=== PATIENT | female | born 1955 | race Caucasian/White ===

== ENCOUNTER → 2021-02-14 | Outpatient (CLI) | payer MEDICARE, BC, OTHER ==
--- NOTE | 2021-02-14 11:43 | REP ---
INDICATION: R07.9 CHEST PAIN R00.2 PALPATATIONS. COMPARISON: None. TECHNIQUE: PA and lateral views FINDINGS: The lungs are clear. The heart is not enlarged. There is no failure. The mediastinum, pleural surfaces and bony structures unremarkable. IMPRESSION: No active process. <Electronically signed by Samuel Montes > 02/14/21 0502
== END ==
LOC: M WUC 11:03
PROVIDERS: ATTEND Physician Assistant
DX: R07.9 Chest pain, unspecified (principal); R00.2 Palpitations

== ENCOUNTER → 2021-11-27 | Outpatient (CLI) | payer MEDICARE, BC, OTHER ==
[2021-11-27 13:30] LABS: BASO # 0.1 10^3/uL (0.0-0.2); BASO % 0.6 % (0.0-1.0); EOS # 0.3 10^3/uL (0.0-0.5); EOS % 3.2 % (0.0-3.0); HEMATOCRIT 41.1 % (36.0-47.0); HEMOGLOBIN 13.3 g/dl (12.0-15.5); LYMPH # 1.6 10^3/uL (1.5-5.0); LYMPH % 20.8 % (24.0-44.0); MEAN CORPUSCULAR HEMOGLOBIN 27.8 pg (27.0-33.0); MEAN CORPUSCULAR HGB CONC 32.4 g/dl (32.0-36.5); MONO # 0.7 10^3/uL (0.0-0.8); MONO % 8.7 % (2.0-8.0); NEUTROPHILS # 5.2 10^3/uL (1.5-8.5); NEUTROPHILS % 66.6 % (36.0-66.0); PLATELET COUNT, AUTOMATED 223 10^3/uL (150-450); RED BLOOD COUNT 4.78 10^6/uL (4.00-5.40); WHITE BLOOD COUNT 7.8 10^3/uL (4.0-10.0)
[2021-11-27 14:03] LABS: ERYTHROCYTE SEDIMENTATION RATE 18 mm/hr (0-30)
== END ==
LOC: M PLALAB 09:57
PROVIDERS: ATTEND Orthopaedic Surgery Adult Reconstructive Orthopaedic Surgery
DX: T84.84XA Pain due to internal orthopedic prosthetic devices, implants and grafts, initial encounter (principal)

== ENCOUNTER → 2021-11-27 | Outpatient (CLI) | payer MEDICARE, BC, OTHER | LOC: M SOG 08:02 | PROVIDERS: ATTEND Orthopaedic Surgery Adult Reconstructive Orthopaedic Surgery | DX: M25.562 Pain in left knee (principal); T84.84XA Pain due to internal orthopedic prosthetic devices, implants and grafts, initial encounter ==

== ENCOUNTER → 2021-12-30 | Outpatient (CLI) | payer MEDICARE, BC, OTHER ==
[~2021-12-30] MED LIST: ATOR1TAB21 PO; AZEL0.055 NARES; CARI1TAB7 PO; D 50CAP2 PO; FERR325T3 PO; FOLI1TAB11 PO; GING1CAP PO; IBUP80TA PO; LEVO100T5 PO; LEVOTAB10 PO; MECL-136 PO; NITR-67 PO; PROAAER10 INH; REDCAP4 PO; VITA100054 PO; VITAE40CA PO; VITATAB64 PO; [UNRECOGNIZED DRUG - CODE] PO
== END ==
LOC: M LABSMTC 10:08
PROVIDERS: ATTEND Anesthesiology
DX: Z01.812 Encounter for preprocedural laboratory examination (principal); Z20.822 Contact with and (suspected) exposure to COVID-19

== ENCOUNTER 2021-12-31 08:23 | Observation (INO) | payer MEDICARE, BC, OTHER ==
[~2021-12-31] VITALS: Ht 165.1 cm; Wt 91.2 kg
[~2021-12-31 08:23] MED LIST changes: +ACETAMINOPHEN 500 MG TAB PO ONE; +NAPROXEN 250 MG TAB PO ONE; +NS 1,000 ML IV ONE; +NS MINI IV ONE; +PREGABALIN 25 MG CAP (LYRICA) PO ONE; +ROPIVA 125MG/EPINEPH 0.25MG/CLONID 40MCG/KETOR 15MG IN NS 50ML SYRINGE PA ONE; +TRANEXAMIC ACID IV ONE; +ceFAZolin SOD 2 GM in IV 1 EA IV ONE; +dexameTHASONE 4 MG/ML 1ML VIAL (J1100 PER 1MG) IV ONE
[2021-12-31] MEDS ORDERED: LR 1,000 ML IV SCH ×3 (09:00→17:35)
[2021-12-31] MEDS ORDERED: LIDOCAINE 2% INJ 100 MG/5 ML SYRINGE As Ordered ONE (10:47)
[2021-12-31] MEDS ORDERED: ACETAMINOPHEN 1000MG 100ML IV BTL (OFIRMEV) (J0131 PER 10MG) As Ordered ONE (10:47)
[2021-12-31] MEDS ORDERED: PHENYLEPHRINE 10MG/ML 1ML VIAL (J2370 PER 1) As Ordered ONE (10:47)
[2021-12-31] MEDS ORDERED: fentaNYL 100 MCG/2 ML INJECTION As Ordered ONE ×2 (10:48→15:24)
[2021-12-31] MEDS ORDERED: propofoL 500 MG/50 ML VIAL As Ordered ONE (10:48)
[2021-12-31] MEDS ORDERED: MIDAZOLAM INJ 2MG/2ML VIAL (J2250 PER 1MG) As Ordered ONE (10:48)
[2021-12-31] MEDS ORDERED: TRANEXAMIC ACID 100 MG/ML 10ML VIAL As Ordered ONE ×2 (11:35→11:36)
[2021-12-31] MEDS ORDERED: propofoL 200 MG/20 ML VIAL As Ordered ONE ×4 (13:04→16:02)
[2021-12-31] MEDS ORDERED: ceFAZolin 1GM VIAL (J0690 PER 500MG) As Ordered ONE (15:40)
[2021-12-31] MEDS ORDERED: ONDANSETRON 4MG 2ML VIAL IV PRN ×2 (15:50→17:30)
[2021-12-31] MEDS ORDERED: fentaNYL 100 MCG/2 ML INJECTION IV PRN (15:50)
[2021-12-31] MEDS ORDERED: oxyCODONE 5MG TAB PO PRN (15:50)
[2021-12-31] MEDS ORDERED: METOCLOPRAMIDE INJ 10MG/2ML VIAL (J2765 PER 1) IV PRN (15:50)
[2021-12-31] MEDS ORDERED: FERROUS SULFATE 325MG TAB PO SCH (17:10)
[2021-12-31] MEDS ORDERED: ALBUTEROL 90 MCG/ACT 8GM HFA INHALER INH PRN (17:10)
[2021-12-31] MEDS: MORPHINE 2 MG/ML 1ML VIAL IV PRN ×2 (17:24→17:36)
[2021-12-31] MEDS ORDERED: ACETAMINOPHEN TAB 650MG DOSE (2X325MG) PO SCH (17:30)
[2021-12-31] MEDS ORDERED: traMADol 50 MG TAB PO PRN (17:30)
[2021-12-31] MEDS ORDERED: SENNA 8.6 MG TAB (SENOKOT) PO PRN (17:30)
[2021-12-31] MEDS ORDERED: NAPROXEN 250 MG TAB PO SCH (17:30)
[2021-12-31] MEDS: oxyCODONE 5MG TAB PO PRN ×2 (17:57→22:16)
[2021-12-31 18:25] VITALS: BP 115/52
[2021-12-31] MEDS: ACETAMINOPHEN TAB 650MG DOSE (2X325MG) PO SCH ×2 (18:56→23:13)
[2021-12-31 19:00] VITALS: BP 123/61
[2021-12-31 19:30] VITALS: BP 122/64
[2021-12-31 19:48] LABS: HEMATOCRIT 34.1 % (36.0-47.0); HEMOGLOBIN 11.3 g/dl (12.0-15.5); MEAN CORPUSCULAR HEMOGLOBIN 28.5 pg (27.0-33.0); MEAN CORPUSCULAR HGB CONC 33.1 g/dl (32.0-36.5); MEAN CORPUSCULAR VOLUME 86.1 fl (80.0-96.0); PLATELET COUNT, AUTOMATED 209 10^3/uL (150-450); RED BLOOD COUNT 3.96 10^6/uL (4.00-5.40); WHITE BLOOD COUNT 13.1 10^3/uL (4.0-10.0)
[2021-12-31 20:30] VITALS: BP 118/64
[2021-12-31] MEDS: AZELASTINE 137MCG NASAL SPY 30 ML (ASTELIN) SCH (21:00)
[2021-12-31] MEDS ORDERED: MECLIZINE 12.5 MG TAB PO PRN (21:00)
[2021-12-31 21:30] VITALS: BP 122/60
[2021-12-31] MEDS: DOCUSATE SODIUM 100MG CAPSULE PO SCH (22:14)
[2021-12-31] MEDS: ASPIRIN 81MG ENTERIC TABLET PO SCH (22:14)
[2021-12-31] MEDS: NAPROXEN 250 MG TAB PO SCH (22:15)
[2021-12-31] MEDS: ceFAZolin SOD 2 GM in IV 1 EA IV SCH (22:16)
[2021-12-31 22:30] VITALS: BP 121/58
[2022-01-01 02:00] VITALS: BP 110/56
[2022-01-01] MEDS: oxyCODONE 5MG TAB PO PRN ×2 (02:23→08:50)
[2022-01-01 06:00] VITALS: BP 104/55
[2022-01-01] MEDS: ACETAMINOPHEN TAB 650MG DOSE (2X325MG) PO SCH ×2 (06:00→13:08)
[2022-01-01] MEDS: ceFAZolin SOD 2 GM in IV 1 EA IV SCH (06:00)
[2022-01-01] MEDS ORDERED: LEVOTHYROXINE 100MCG TABLET (0.1MG) PO SCH (06:00)
[2022-01-01 06:37] LABS: HEMATOCRIT 30.8 % (36.0-47.0); HEMOGLOBIN 10.3 g/dl (12.0-15.5); MEAN CORPUSCULAR HEMOGLOBIN 29.2 pg (27.0-33.0); MEAN CORPUSCULAR HGB CONC 33.4 g/dl (32.0-36.5); MEAN CORPUSCULAR VOLUME 87.3 fl (80.0-96.0); PLATELET COUNT, AUTOMATED 203 10^3/uL (150-450); RED BLOOD COUNT 3.53 10^6/uL (4.00-5.40); WHITE BLOOD COUNT 14.8 10^3/uL (4.0-10.0)
[2022-01-01 07:07] LABS: ALBUMIN 3.5 GM/DL (3.2-5.2); ALT/SGPT 17 U/L (12-78); BILIRUBIN,TOTAL 0.3 MG/DL (0.2-1.0); BLOOD UREA NITROGEN 13 MG/DL (7-18); CALCIUM LEVEL 8.2 MG/DL (8.8-10.2); CARBON DIOXIDE LEVEL 27 MEQ/L (21-32); CHLORIDE LEVEL 104 MEQ/L (98-107); CREATININE FOR GFR 0.88 MG/DL (0.55-1.30); GLOMERULAR FILTRATION RATE > 60.0 (>45); GLUCOSE, FASTING 167 MG/DL (70-100); POTASSIUM SERUM 4.2 MEQ/L (3.5-5.1); SODIUM LEVEL 137 MEQ/L (136-145); TOTAL PROTEIN 6.1 GM/DL (6.4-8.2)
[2022-01-01] MEDS: ASPIRIN 81MG ENTERIC TABLET PO SCH (08:49)
[2022-01-01] MEDS: NAPROXEN 250 MG TAB PO SCH (08:50)
[2022-01-01] MEDS: DOCUSATE SODIUM 100MG CAPSULE PO SCH (08:50)
[2022-01-01] MEDS ORDERED: CYANOCOBALAMIN 500 MCG TAB PO SCH (09:00)
[2022-01-01] MEDS ORDERED: FOLIC ACID 1 MG TAB PO SCH (09:00)
[2022-01-01] MEDS ORDERED: ASCORBIC ACID 500 MG TAB PO SCH (09:00)
[2022-01-01] MEDS: AZELASTINE 137MCG NASAL SPY 30 ML (ASTELIN) SCH (09:00)
[2022-01-01] MEDS ORDERED: ATORVASTATIN 20 MG TAB PO SCH (09:00)
[2022-01-01] MEDS ORDERED: FERROUS SULFATE 325MG TAB PO SCH (09:00)
[2022-01-01 10:00] VITALS: BP 114/53
[2022-01-01] MEDS ORDERED: FERR1TAB8 PO (13:39)
[2022-01-01] MEDS ORDERED: OXYC-517 PO (13:39)
[2022-01-01] MEDS ORDERED: SENN18TA PO (13:39)
[2022-01-01] MEDS ORDERED: TRAM50TA2 PO (13:39)
[2022-01-01] MEDS ORDERED: ASPI-551 PO (13:39)
[2022-01-01] MEDS ORDERED: ACET1TAB55 PO (13:39)
[2022-01-01] MEDS ORDERED: COLA100C5 PO (13:39)
[2022-01-01 14:00] VITALS: BP 118/55
== END 2022-01-01 15:25 | disposition home health service (06) ==
LOC: M OR 08:23 → UNDOADMIN 08:23 → INTOOBSV 08:35 → M OR 08:35 → EDBEDREQ 08:42 → EDSTATUS 10:25 → M MS5PR 18:15
PROVIDERS: ADMIT Orthopaedic Surgery Adult Reconstructive Orthopaedic Surgery; ATTEND Orthopaedic Surgery Adult Reconstructive Orthopaedic Surgery
DX: T84.093A Other mechanical complication of internal left knee prosthesis, initial encounter (principal); M79.7 Fibromyalgia; E78.5 Hyperlipidemia, unspecified; E55.9 Vitamin D deficiency, unspecified; E03.9 Hypothyroidism, unspecified; M46.1 Sacroiliitis, not elsewhere classified; J45.909 Unspecified asthma, uncomplicated; L40.9 Psoriasis, unspecified; Z87.891 Personal history of nicotine dependence; Z88.2 Allergy status to sulfonamides; Z79.899 Other long term (current) drug therapy; H81.10 Benign paroxysmal vertigo, unspecified ear; Z20.822 Contact with and (suspected) exposure to COVID-19
CPT/HCPCS: 27487; 36415; 73560; 80053; 85027; 87070; 87075; 87205; 87426; 96365; 96366; 96375; 97110; 97116; 97162; 97165; 97530; C1776; G0378; J0690; J1100; J2250; J2270; J2370; J2405; J3010

== ENCOUNTER → 2022-01-03 | Outpatient (REF) | payer MEDICARE, BC, OTHER ==
[~2022-01-03] MED LIST changes: +ACET1TAB55 PO; -ACETAMINOPHEN 500 MG TAB PO ONE; +ASPI-551 PO; +COLA100C5 PO; +FERR1TAB8 PO; -NAPROXEN 250 MG TAB PO ONE; -NS 1,000 ML IV ONE; -NS MINI IV ONE; +OXYC-517 PO; -PREGABALIN 25 MG CAP (LYRICA) PO ONE; -ROPIVA 125MG/EPINEPH 0.25MG/CLONID 40MCG/KETOR 15MG IN NS 50ML SYRINGE PA ONE; +SENN18TA PO; +TRAM50TA2 PO; -TRANEXAMIC ACID IV ONE; -ceFAZolin SOD 2 GM in IV 1 EA IV ONE; -dexameTHASONE 4 MG/ML 1ML VIAL (J1100 PER 1MG) IV ONE
[2022-01-03 13:56] LABS: BASO # 0.1 10^3/uL (0.0-0.2); BASO % 0.5 % (0.0-1.0); EOS # 0.2 10^3/uL (0.0-0.5); EOS % 1.7 % (0.0-3.0); HEMATOCRIT 28.5 % (36.0-47.0); HEMOGLOBIN 9.2 g/dl (12.0-15.5); LYMPH % 17.7 % (24.0-44.0); MEAN CORPUSCULAR HEMOGLOBIN 28.5 pg (27.0-33.0); MEAN CORPUSCULAR HGB CONC 32.3 g/dl (32.0-36.5); MEAN CORPUSCULAR VOLUME 88.2 fl (80.0-96.0); MONO # 0.9 10^3/uL (0.0-0.8); MONO % 8.3 % (2.0-8.0); NEUTROPHILS # 7.9 10^3/uL (1.5-8.5); NEUTROPHILS % 71.3 % (36.0-66.0); PLATELET COUNT, AUTOMATED 221 10^3/uL (150-450); RED BLOOD COUNT 3.23 10^6/uL (4.00-5.40); WHITE BLOOD COUNT 11.1 10^3/uL (4.0-10.0)
== END ==
LOC: M SHH 13:36
PROVIDERS: ATTEND Orthopaedic Surgery Adult Reconstructive Orthopaedic Surgery
DX: T84.093A Other mechanical complication of internal left knee prosthesis, initial encounter (principal)

== ENCOUNTER → 2022-01-13 | Outpatient (CLI) | payer MEDICARE, BC, OTHER | LOC: M SOG 08:02 | PROVIDERS: ATTEND Orthopaedic Surgery Adult Reconstructive Orthopaedic Surgery | DX: T84.023A Instability of internal left knee prosthesis, initial encounter (principal); T84.063A Wear of articular bearing surface of internal prosthetic left knee joint, initial encounter ==

== ENCOUNTER → 2022-04-30 | Outpatient (CLI) | payer MEDICARE, BC, OTHER | LOC: M SOG 08:13 | PROVIDERS: ATTEND Orthopaedic Surgery Adult Reconstructive Orthopaedic Surgery | DX: Z96.652 Presence of left artificial knee joint (principal); Z53.9 Procedure and treatment not carried out, unspecified reason ==

== ENCOUNTER → 2022-11-10 | Day surgery (SDC) | payer MEDICARE, BC, OTHER ==
[~2022-11-10] VITALS: Ht 165.1 cm; Wt 90.2 kg
[~2022-11-10] MED LIST changes: +ALBU8.5H INH; +MECL1TAB31 PO; +NS 1,000 ML IV ONE; +propofoL 200 MG/20 ML VIAL As Ordered ONE
[2022-11-10 12:40] VITALS: BP 168/74
== END | disposition home or self-care (01) ==
LOC: M SDC 10:27
PROVIDERS: ATTEND Internal Medicine Gastroenterology
DX: Z12.11 Encounter for screening for malignant neoplasm of colon (principal); Z80.0 Family history of malignant neoplasm of digestive organs; K64.0 First degree hemorrhoids; E78.5 Hyperlipidemia, unspecified; E03.9 Hypothyroidism, unspecified; M79.7 Fibromyalgia; M81.0 Age-related osteoporosis without current pathological fracture; J45.909 Unspecified asthma, uncomplicated; Z79.52 Long term (current) use of systemic steroids; Z79.899 Other long term (current) drug therapy

== ENCOUNTER → 2022-12-04 | Outpatient (CLI) | payer MEDICARE, BC, OTHER ==
[~2022-12-04] MED LIST changes: -NS 1,000 ML IV ONE; -propofoL 200 MG/20 ML VIAL As Ordered ONE
== END ==
LOC: M SOG 08:12
PROVIDERS: ATTEND Orthopaedic Surgery
DX: Z96.652 Presence of left artificial knee joint (principal)

== ENCOUNTER → 2023-12-10 | Outpatient (CLI) | payer MEDICARE, BC, OTHER ==
[~2023-12-10] MED LIST changes: -AZEL0.055 NARES; +AZEL1SPR4 NARES; +MECL-209 PO; -MECL1TAB31 PO; +SENN-111 PO; -SENN18TA PO
== END ==
LOC: M SOG 07:52
PROVIDERS: ATTEND Orthopaedic Surgery
DX: Z96.652 Presence of left artificial knee joint (principal)

== ENCOUNTER → 2023-12-23 | Outpatient (CLI) | payer MEDICARE, BC | LOC: M RAD 07:39 | PROVIDERS: ATTEND Orthopaedic Surgery | DX: Z96.652 Presence of left artificial knee joint (principal) | CPT/HCPCS: 78315; A9503 ==

== ENCOUNTER → 2024-01-06 | Outpatient (CLI) | payer MEDICARE, BC | LOC: M WHC 08:49 | PROVIDERS: ATTEND Orthopaedic Surgery | DX: Z96.652 Presence of left artificial knee joint (principal); M85.88 Other specified disorders of bone density and structure, other site ==

== ENCOUNTER → 2025-05-04 | Outpatient (CLI) | payer MEDICARE, BC ==
[~2025-05-04] MED LIST changes: +CARI-555 PO; -CARI1TAB7 PO; +CHOL25CA2 PO; -GING1CAP PO; +GING550C4 PO; -SENN-111 PO; +SENN-165 PO; -VITA100054 PO
== END ==
LOC: M WUC 09:46
PROVIDERS: ATTEND Physician Assistant
DX: M54.6 Pain in thoracic spine (principal); M47.814 Spondylosis without myelopathy or radiculopathy, thoracic region

== ENCOUNTER 2025-06-14 08:31 | Day surgery (SDC) | payer MEDICARE, BC ==
[~2025-06-14] VITALS: Ht 165.1 cm; Wt 99.3 kg
[~2025-06-14 08:31] MED LIST changes: -CHOL25CA2 PO; +D3 H10003 PO; +PHENYLEPHRINE 10% OPHTH SOL 5ML OD PRN
[2025-06-14] MEDS: OFLOXACIN 0.3 % (OCUFLOX) OPTH SOL 5ML OD ONE (09:33)
[2025-06-14] MEDS: CYCLOPENTOLATE 1% OPHTH SOLN 2 ML BTL OD SCH (09:34)
[2025-06-14] MEDS: LIDOCAINE 3.5% 1 ML OPHTH TOPICAL GEL OU ONE (09:34)
[2025-06-14] MEDS: PHENYLEPHRINE 2.5% OPHTH SOL 2ML OD SCH (09:34)
[2025-06-14] MEDS: TROPICAMIDE 1% OPHTH SOLN 15ML OD SCH (09:34)
[2025-06-14] MEDS ORDERED: MIDAZOLAM INJ 2 MG/2 ML VIAL As Ordered ONE (10:27)
[2025-06-14] MEDS: LIDOCAINE 1% SDV 5 ML VIAL As Ordered ONE (10:57)
[2025-06-14] MEDS: BSS IRRIG/VANCO(10MG)/TOBRA(5MG)/EPINEPH(1:1000-0.5CC)500ML BAG-ORONLY As Ordered ONE (10:57)
[2025-06-14] MEDS: CEFUROXIME 1 MG/0.1 ML INTRACAMERAL INJ As Ordered ONE (10:57)
[2025-06-14 11:13] VITALS: BP 137/63; TEMP 97.4; O2SAT 97
[2025-06-15] MEDS ORDERED: ATOR1TAB21 PO (07:33)
== END 2025-06-14 11:30 | disposition home or self-care (01) ==
LOC: M SDC 08:31
PROVIDERS: ATTEND Ophthalmology
DX: H25.11 Age-related nuclear cataract, right eye (principal); E03.9 Hypothyroidism, unspecified; J45.909 Unspecified asthma, uncomplicated; E78.00 Pure hypercholesterolemia, unspecified; Z79.899 Other long term (current) drug therapy; Z79.890 Hormone replacement therapy; M81.0 Age-related osteoporosis without current pathological fracture; Z88.2 Allergy status to sulfonamides; Z90.710 Acquired absence of both cervix and uterus; Z87.440 Personal history of urinary (tract) infections
CPT/HCPCS: 66984; J0697; J2250; J3010; V2788

== ENCOUNTER 2025-06-21 07:34 | Day surgery (SDC) | payer MEDICARE, BC ==
[~2025-06-21] VITALS: Ht 165.1 cm; Wt 99.5 kg
[~2025-06-21 07:34] MED LIST changes: -PHENYLEPHRINE 10% OPHTH SOL 5ML OD PRN; +PHENYLEPHRINE 10% OPHTH SOL 5ML OS PRN
[2025-06-21] MEDS: LIDOCAINE 3.5% 1 ML OPHTH TOPICAL GEL OU ONE (07:58)
[2025-06-21] MEDS: OFLOXACIN 0.3 % (OCUFLOX) OPTH SOL 5ML OS ONE (07:58)
[2025-06-21] MEDS: CYCLOPENTOLATE 1% OPHTH SOLN 2 ML BTL OS SCH (07:59)
[2025-06-21] MEDS: TROPICAMIDE 1% OPHTH SOLN 15ML OS SCH (07:59)
[2025-06-21] MEDS: PHENYLEPHRINE 2.5% OPHTH SOL 2ML OS SCH (07:59)
[2025-06-21] MEDS: BSS IRRIG/VANCO(10MG)/TOBRA(5MG)/EPINEPH(1:1000-0.5CC)500ML BAG-ORONLY As Ordered ONE (08:49)
[2025-06-21] MEDS: LIDOCAINE 1% SDV 5 ML VIAL As Ordered ONE (08:49)
[2025-06-21] MEDS: CEFUROXIME 1 MG/0.1 ML INTRACAMERAL INJ As Ordered ONE (08:49)
[2025-06-21] MEDS: DUOVISC (0.50 ML VISCOAT/0.85 ML PROVISC) OPHTH KIT As Ordered ONE (09:06)
[2025-06-21 09:18] VITALS: BP 140/59; TEMP 98; O2SAT 100
== END 2025-06-21 09:30 | disposition home or self-care (01) ==
LOC: M SDC 07:34
PROVIDERS: ATTEND Ophthalmology
DX: H25.12 Age-related nuclear cataract, left eye (principal); E03.9 Hypothyroidism, unspecified; E78.00 Pure hypercholesterolemia, unspecified; J45.909 Unspecified asthma, uncomplicated; M79.7 Fibromyalgia; Z79.890 Hormone replacement therapy; Z79.899 Other long term (current) drug therapy; Z85.828 Personal history of other malignant neoplasm of skin; Z88.2 Allergy status to sulfonamides; Z98.41 Cataract extraction status, right eye
CPT/HCPCS: 66984; J0697; J3010; V2632; V2788